=== PATIENT | female | born 1935 | race Caucasian/White ===

== ENCOUNTER 2016-08-12 15:02 | Emergency (ER) ==
[2016-08-12 15:10] VITALS: BP 197/95; TEMP 96.5
--- NOTE | 2016-08-12 15:30 | ED.PDOC ---
General ED Provider: Dr. CASEY THURSTON JR Chief Complaint: Hypertension Stated Complaint: patient states that they were checking blood pressures at assisted living and they found her blood pressure elevated. patient states she did not know her blood pressure was up. states she checks her blood pressure in her room and it has been fine. denies headache or chest pain. patient states it was a random check of her blood pressure that found it was elevated. states she does not feel like it is up.[ End ]. 96.5 72 16 98% 197/95 LUMPECTOMY, GALL BLADDER cad anx depr afib chol ca htn Time Seen by Physician: 15:25 Mode of Arrival: Walk-In Information Source: Patient Exam Limitations: No limitations Primary Care Provider: KYAW RECIO Nursing and Triage Documentation Reviewed and Agree: No Review of Systems - Review Of Systems Constitutional: Reports: Malaise Eyes: Reports: No symptoms Ears, Nose, Mouth, Throat: Reports: No symptoms Respiratory: Reports: No symptoms Cardiac: Reports: Palpitations GI: Reports: No symptoms : Reports: No symptoms Musculoskeletal: Reports: No symptoms Skin: Reports: No symptoms Neurological: Reports: Cognitive dysfunction (poor memory- uses notes) Endocrine: Reports: Other (complains of malaise from methimazole- unable to guve any symptoms) Hematologic/Lymphatic: Reports: No symptoms All Other Systems: Other Past Medical History - Past Medical History Previously Healthy: No Endocrine: Reports: None Cardiovascular: Reports: Hypertension, A-Fib Respiratory: Reports: None Hematological: Reports: None Gastrointestinal: Reports: None Genitourinary: Reports: None Neuro/Psych: Reports: None Musculoskeletal: Reports: None Cancer: Reports: None Last Menstrual Period: n/a - Surgical History General Surgical History: Reports: Unknown - Family History Family History: Reports: Unknown - Social History Smoking Status: Former smoker Hx Substance Use: No Alcohol Screening: None Physical Exam - Physical Exam Appearance: Well-appearing, Obese Pain Distress: Mild Eyes: ABDIFATAH, EOMI, Conjunctiva clear ENT: Ears normal, Nose normal, Oropharynx normal Neck: Supple Respiratory: Airway patent, Breath sounds clear, Breath sounds equal, Respirations nonlabored Cardiovascular: RRR, Pulses normal, No rub, No murmur GI/: Soft, Nontender, No masses, Bowel sounds normal, No Organomegaly Musculoskeletal: Normal strength, ROM intact, No edema, No calf tenderness Skin: Warm, Dry, Normal color Neurological: Sensation intact, Motor intact, Reflexes intact, Cranial nerves intact, Alert, Oriented (confusion, repeats self) Psychiatric: Anxious Interpretation - EKG Interpretation Time of EKG #1: 15:35 Rhythm: Other (AFIB 97/MIN) [place]: Left ST Segment: Other (STRAIN [[ATTERN NO SIG CHANGE FROM [id number]) Physician Notification - Case Discussed Endorsed To/Discussed With: DR QUEVEDO INFORMED- [facility] AWAITING FAMILY Time of Discussion: 19:15 Critical Care Note - Critical Care Note Total Time (mins): 0 Course - Course Orders, Labs, Meds: Orders Category Date Time Status EKG-(ED ONLY) Stat CARDIO 08/12/16 15:26 Completed Diltiazem HCl [Cardizem Cd] MEDS 08/13/16 09:00 Discontinued 120 mg PO DAILY Diltiazem HCl [Cardizem Cd] MEDS 08/12/16 17:52 Discontinued 120 mg PO ONCE STA Diltiazem HCl [Cardizem Cd] MEDS 08/12/16 17:57 Discontinued 180 mg PO ONCE STA Diltiazem HCl [Cardizem] MEDS 08/12/16 15:40 Discontinued 60 mg PO ONCE STA Medications Discontinued Medications Generic Name Dose Route Start Last Admin Trade Name Freq PRN Reason Stop Dose Admin Diltiazem HCl 60 mg 08/12/16 15:40 08/12/16 15:49 Cardizem PO 08/12/16 15:41 60 mg ONCE STA Administration Diltiazem HCl 120 mg 08/13/16 09:00 Cardizem Cd PO DAILY [facility] Diltiazem HCl 120 mg 08/12/16 17:52 08/12/16 18:06 Cardizem Cd PO 08/12/16 17:53 Not Given ONCE STA Diltiazem HCl 180 mg 08/12/16 17:57 08/12/16 18:07 Cardizem Cd PO 08/12/16 17:58 180 mg ONCE STA Administration Vital Signs: Temp Pulse Resp BP Pulse Ox 08/12/16 15:05 96.5 F L 72 16 197/95 H 98 PATRICIA Risk Score PATRICIA Risk Score: Risk Score Odds of by 30D 0 0.1 (0.1-0.2) 1 0.3 (0.2-0.3) 2 0.4 (0.3-0.5) 3 0.7 (0.6-0.9) 4 1.2 (1.0-1.5) 5 2.2 (1.9-2.6) 6 3.0 (2.5-3.6) 7 4.8 (3.8-6.1) Departure - Departure Time of Disposition: 18:50 Disposition: HOME SELF-CARE Discharge Problem: Hypertension Instructions: Hypertension (ED) Condition: Good Pt referred to PMD for follow-up: Yes Additional Instructions: Please call your Family Physician as soon as possible to schedule a follow-up appointment. follow up with your primary care physician one week to recheck blood pressure take Cardizem one each morning may take your medicine for today when you arrive home today recommend take usual medications each day Prescriptions: Diltiazem HCl [Cardizem Cd] 120 mg PO DAILY #60 cap.er.24h Allergies/Adverse Reactions: Allergies No Known Allergies Allergy (Unverified 08/12/16 15:10) Home Medications: Ambulatory Orders Alprazolam [Xanax] 0.5 mg PO QID PRN 01/02/15 Warfarin Sodium [Coumadin] 2 mg PO DAILY 01/02/15 Amiodarone HCl 200 mg PO BEDTIME 08/12/16 Aspirin [Aspirin Chewable] 81 mg PO DAILYWM 08/12/16 Diltiazem HCl [Cardizem Cd] 120 mg PO DAILY #60 cap.er.24h 08/12/16 Methimazole 5 mg PO DAILY 08/12/16
[2016-08-12] MEDS ORDERED: CARDIZEM PO STA (15:40)
[2016-08-12] MEDS ORDERED: CARDIZEM CD PO STA ×2 (17:52→17:57)
[2016-08-12] MEDS ORDERED: CORDARONE PO STA (19:01)
[2016-08-13] MEDS ORDERED: CARDIZEM CD PO SCH ×2 (09:00)
== END 2016-08-12 19:34 | disposition home or self-care (01) ==
LOC: ED 15:02
DX: I10 Essential (primary) hypertension (principal); Z79.01 Long term (current) use of anticoagulants; Z79.899 Other long term (current) drug therapy
CPT/HCPCS: 93005; 93010; 99284

== ENCOUNTER 2016-10-06 11:47 | Emergency (ER) ==
[2016-10-06 11:51] VITALS: BP 182/76; TEMP 98.4; BMI 20.5
--- NOTE | 2016-10-06 12:28 | ED.PDOC ---
General ED Provider: Dr. CASEY THURSTON JR Chief Complaint: Non-specific Complaint Stated Complaint: patient has a bruise to outer aspect of left elbow. states it has a knot in it and was told it was a blood clot. patient's bruise is yellow, purple and blue. [ End ]patient unable to give current med doses but does have [facility] denies injury denies assault Time Seen by Physician: 12:28 Mode of Arrival: Walk-In Information Source: Patient Exam Limitations: Dementia Primary Care Provider: KYAW RECIO Nursing and Triage Documentation Reviewed and Agree: Yes Review of Systems - Review Of Systems Constitutional: Reports: No symptoms Eyes: Reports: No symptoms Ears, Nose, Mouth, Throat: Reports: No symptoms Respiratory: Reports: No symptoms Cardiac: Reports: No symptoms GI: Reports: No symptoms : Reports: No symptoms Musculoskeletal: Reports: No symptoms Skin: Reports: Bruising, Lumps Neurological: Reports: No symptoms Endocrine: Reports: No symptoms Hematologic/Lymphatic: Reports: No symptoms All Other Systems: Other Past Medical History - Past Medical History Previously Healthy: No Endocrine: Reports: None Cardiovascular: Reports: Hypertension, A-Fib Respiratory: Reports: None Hematological: Reports: None Gastrointestinal: Reports: None Genitourinary: Reports: None Neuro/Psych: Reports: None Musculoskeletal: Reports: None Cancer: Reports: None Last Menstrual Period: n/a - Surgical History General Surgical History: Reports: Unknown - Family History Family History: Reports: Unknown - Social History Smoking Status: Former smoker Hx Substance Use: No Alcohol Screening: None Physical Exam - Physical Exam Appearance: Well-appearing, Thin Pain Distress: Moderate (concern about bruising) Eyes: ABDIFATAH, EOMI, Conjunctiva clear ENT: Ears normal, Nose normal, Oropharynx normal Neck: Supple Respiratory: Airway patent, Breath sounds clear, Breath sounds equal, Respirations nonlabored Cardiovascular: RRR, Pulses normal, No rub, Murmur GI/: Soft, Nontender, No masses, Bowel sounds normal, No Organomegaly Musculoskeletal: Normal strength, ROM intact, No edema, No calf tenderness Skin: Warm, Dry (left elbow bruising with proximal swollen area about 2cm by 1 cm not consistent with vasculitis) Neurological: Sensation intact, Motor intact, Alert, Oriented Psychiatric: Anxious Critical Care Note - Critical Care Note Total Time (mins): 0 Course - Course Vital Signs: Temp Pulse Resp BP Pulse Ox 04/04/17 11:49 98.4 F 59 L 16 182/76 H 96 Departure - Departure Time of Disposition: 12:30 Disposition: HOME SELF-CARE Discharge Problem: Contusion Qualifiers: Encounter type: initial encounter Contusion area: elbow Laterality: left Qualifier Code: (S50.02XA) Contusion of left elbow, initial encounter Instructions: Contusion in Adults (ED) Condition: Good Pt referred to PMD for follow-up: Yes Additional Instructions: skip one dose of aspirin(do not take tomorrow /5) inform PMD if any other bruising continue other medications return if red tender or if arm or leg swelling recheck PMD one to two weeks after tomorrow resume low dose aspirin Allergies/Adverse Reactions: Allergies No Known Allergies Allergy (Unverified 10/06/16 11:51) Home Medications: Ambulatory Orders Alprazolam [Xanax] 0.5 mg PO QID PRN 01/02/15 Warfarin Sodium [Coumadin] 2 mg PO EVERY OTHER DAY 01/02/15 Amiodarone HCl 200 mg PO BEDTIME 08/12/16 Aspirin [Aspirin Chewable] 81 mg PO DAILYWM 08/12/16 Methimazole 5 mg PO DAILY 08/12/16 Warfarin Sodium [Coumadin] 1 mg PO EVERY OTHER DAY 10/06/16
== END 2016-10-06 12:48 | disposition home or self-care (01) ==
LOC: ED 11:47
DX: S50.02XA Contusion of left elbow, initial encounter (principal); Z79.01 Long term (current) use of anticoagulants; Z79.899 Other long term (current) drug therapy
CPT/HCPCS: 99282

== ENCOUNTER 2018-07-29 06:13 | Outpatient (CLI) | payer OTHER | END 2018-07-29 06:30 | disposition short-term general hospital (02) | LOC: AMBL 06:13 | PROVIDERS: ATTEND Internal Medicine Geriatric Medicine | DX: S01.21XA Laceration without foreign body of nose, initial encounter (principal); S00.83XA Contusion of other part of head, initial encounter; M79.89 Other specified soft tissue disorders; W19.XXXA Unspecified fall, initial encounter ==

== ENCOUNTER 2018-07-30 12:46 | Outpatient (CLI) | END 2018-07-30 12:47 | disposition home or self-care (01) | LOC: AMBL 12:46 | PROVIDERS: ATTEND Emergency Medicine | DX: S09.90XA Unspecified injury of head, initial encounter (principal); M54.9 Dorsalgia, unspecified; R41.0 Disorientation, unspecified; I48.91 Unspecified atrial fibrillation; W19.XXXA Unspecified fall, initial encounter; S00.83XA Contusion of other part of head, initial encounter ==

== ENCOUNTER 2018-12-16 18:04 | Outpatient (CLI) | END 2018-12-16 18:23 | disposition short-term general hospital (02) | LOC: AMBL 18:04 | PROVIDERS: ATTEND Internal Medicine | DX: R07.9 Chest pain, unspecified (principal); R61 Generalized hyperhidrosis; I10 Essential (primary) hypertension; R00.1 Bradycardia, unspecified; F41.9 Anxiety disorder, unspecified ==